=== PATIENT | female | born 1995 | race Two or more races ===

== ENCOUNTER 2022-09-11 18:02 | Emergency (ER) | payer MEDICAID ==
[~2022-09-11] VITALS: Ht 157.5 cm; Wt 65.0 kg
[2022-09-11 18:24] VITALS: BP 111/63
[2022-09-11] MEDS ORDERED: amoxicillin 250mg capsule PO ONE (19:20)
[2022-09-11] MEDS ORDERED: gabapentin 100mg capsule PO ONE (19:20)
[2022-09-11] MEDS ORDERED: ketorolac trometh inj. 60 MG/2 ML VIAL IM ONE (19:20)
[2022-09-11] MEDS ORDERED: GABA-530 PO (19:41)
[2022-09-11] MEDS ORDERED: IBUP-1986 PO (19:41)
[2022-09-11] MEDS ORDERED: AMOX-101 PO (19:41)
== END 2022-09-11 20:05 | disposition home or self-care (01) ==
LOC: ER 18:03
DX: K08.89 Other specified disorders of teeth and supporting structures (principal); R20.0 Anesthesia of skin; Z79.899 Other long term (current) drug therapy
CPT/HCPCS: 96372; 99283; J1885